=== PATIENT | female | born 1985 | race Caucasian/White ===

== ENCOUNTER 2018-10-28 12:17 | Emergency (ER) | payer SELFPAY ==
[~2018-10-28] VITALS: Ht 170.2 cm; Wt 108.9 kg
[~2018-10-28 12:17] MED LIST: IBUPROFEN
[2018-10-28 12:28] VITALS: BP_SYST 138
--- NOTE | 2018-10-28 12:31 | NUR ---
Patient triaged and placed in waiting room. VSS and patient appears in no acute distress at this time. Accompanied by children, awaiting available bed, and MD notified of need for MSE.
--- NOTE | 2018-10-28 13:10 | NUR ---
Placed in triage for exam.
--- NOTE | 2018-10-28 13:11 | NUR ---
Bronson DEY in triage for examing pt.
--- NOTE | 2018-10-28 14:10 | NUR ---
Patient given written and verbal discharge instructions and verbalizes understanding. ER MD discussed with patient the results and treatment provided. Patient in stable condition. ID arm band removed. Rx of Motrin given. Patient educated on pain management and to follow up with PMD. Pain Scale 5/10. Opportunity for questions provided and answered. Medication side effect fact sheet provided.
== END 2018-10-28 14:11 | disposition home or self-care (01) ==
LOC: SED 12:17
DX: S93.401A Sprain of unspecified ligament of right ankle, initial encounter (principal); I10 Essential (primary) hypertension; X50.0XXA Overexertion from strenuous movement or load, initial encounter; Y93.01 Activity, walking, marching and hiking; Y92.830 Public park as the place of occurrence of the external cause; Y99.8 Other external cause status
CPT/HCPCS: 99283